=== PATIENT | female | born 1990 ===

== ENCOUNTER 2017-12-13 00:34 | Emergency (ER) | payer SELFPAY ==
[2017-12-13 01:32] LABS: HCG,QUALITATIVE URINE NEGATIVE (NEGATIVE)
--- NOTE | 2017-12-13 01:33 | C.PDOC ---
History Of Present Illness Patient with a Hx of vp revenue cycle shunt presents to the ER with a complaint of headache, dizziness, nausea, and vomiting, for the past 3 days. Patient states she feels like she has pressure behind her eyes. Denies recent trauma. Time Seen by Provider: 12/13/17 01:33 Chief Complaint (Nursing): Headache History Per: Patient History/Exam Limitations: no limitations Onset/Duration Of Symptoms: Days Current Symptoms Are (Timing): Still Present Severity: Moderate Pain Scale Rating Of: 4 Quality: "Pain" Preceeding Symptoms: None Associated Symptoms: Nausea, Vomiting. denies: Photophobia, Blurred Vision, Extremity Weakness Recent travel outside of the [place]: No Past Medical History Reviewed: Historical Data, Nursing Documentation, Vital Signs Vital Signs: Last Vital Signs Temp 98.3 F 12/13/17 04:00 Pulse 56 L 12/13/17 04:00 Resp 16 12/13/17 04:00 BP 110/69 12/13/17 04:00 Pulse Ox 99 12/13/17 04:48 Family History: States: No Known Family Hx - Social History Hx Alcohol Use: Yes Hx Substance Use: No - Immunization History Hx Tetanus Toxoid Vaccination: No Hx Influenza Vaccination: No Hx Pneumococcal Vaccination: No Review Of Systems Constitutional: Negative for: Fever, Chills Gastrointestinal: Positive for: Nausea, Vomiting. Negative for: Abdominal Pain Neurological: Positive for: Headache, Dizziness Physical Exam - Physical Exam Appears: Non-toxic Skin: Warm, Dry Head: Normacephalic Oral Mucosa: Moist Chest: Symmetrical, No Tenderness Cardiovascular: Rhythm Regular Respiratory: No Rales, No Rhonchi, No Wheezing Gastrointestinal/Abdominal: Soft, No Tenderness, Distention (Mildly), Other ( Tympanic to percussion) Neurological/Psych: Oriented x3 ED Course And Treatment - Laboratory Results Result Diagrams: 12/13/17 03:38 12/13/17 03:38 O2 Sat by Pulse Oximetry: 99 (Room air) Pulse Ox Interpretation: Normal - Radiology CXR: Interpreted by Me, Viewed By Me CXR Interpretation: Yes: Other (shunt drain in place). No: Infiltrates, Fracture, Pnemothorax Progress Note: CT head, blood work, and urinalysis ordered. IV fluids and zofran administered. 3:55 am pr developed some hives on right forearm after morphine. No wheezing, speaking in complete sentences. benadryl and solu-medrol given Reevaluation Time: 06:01 Reassessment Condition: Improved Disposition Counseled Patient/Family Regarding: Studies Performed, Diagnosis, Need For Followup, Rx Given - Disposition Referrals: [facility] [Outside] [facility] [Outside] Disposition: HOME/ ROUTINE Disposition Time: 01:33 Condition: FAIR Additional Instructions: Please follow up with your neurosurgeon Prescriptions: Ondansetron ODT [Zofran ODT] 1 odt PO BID PRN #10 odt PRN Reason: Nausea/Vomiting Instructions: Acute Headache (DC) Forms: [employer] (German) - Clinical Impression Clinical Impression: Headache - Scribe Statement The provider has reviewed the documentation as recorded by the [employer] All medical record entries made by the Scribe were at my direction and personally dictated by me. I have reviewed the chart and agree that the record accurately reflects my personal performance of the history, physical exam, medical decision making, and the department course for this patient. I have also personally directed, reviewed, and agree with the discharge instructions and disposition.
[2017-12-13] MEDS ORDERED: Lactated Ringer's 1,000 ML IV STA (01:44)
[2017-12-13 01:48] LABS: SQUAMOUS EPITHIAL 6 /hpf (0-5); URINE BILIRUBIN NEGATIVE (NEGATIVE); URINE BLOOD NEGATIVE (NEGATIVE); URINE CLARITY Hazy (Clear); URINE COLOR Yellow (YELLOW); URINE GLUCOSE (UA) NORMAL (Normal); URINE LEUKOCYTE ESTERASE NEG Leu/uL (Negative); URINE NITRATE NEGATIVE (NEGATIVE); URINE PROTEIN NEGATIVE (NEGATIVE)
[2017-12-13] MEDS ORDERED: Lactated Ringer's 1,000 ML ONE (02:36)
--- NOTE | 2017-12-13 02:42 | CT ---
EXAM: CT Head Without Intravenous Contrast CLINICAL HISTORY: 27 years old, female; Pain; Headache; Headache not specified; Prior surgery; Surgery date: 6+ months; Surgery type: Trading Manager shunt. 1.5yrs ago; Additional info: Headache, HX of avp shunt TECHNIQUE: Axial computed tomography images of the head/brain without intravenous contrast. All CT scans at this facility use one or more dose reduction techniques, viz.: automated exposure control; ma/kV adjustment per patient size (including targeted exams where dose is matched to indication; i.e. head); or iterative reconstruction technique. COMPARISON: No relevant prior studies available. FINDINGS: Brain: No intracranial hemorrhage. No mass. No definite edema. Ventricles: No hydrocephalus. Ventricular shunt via right frontal approach, tip projected over third ventricle. Bones/joints: No acute fracture. Soft tissues: Unremarkable. Sinuses: No acute sinusitis. Mastoid air cells: No mastoid effusion. Orbits: Unremarkable as visualized. IMPRESSION: 1. No definite acute intracranial abnormality. 2. Incidental/non-acute findings are described above.
[2017-12-13 03:41] LABS: BASO # 0.1 K/uL (0.0-0.2); EOS # 0.2 K/uL (0.0-0.7); EOS % 2.9 % (0.0-4.0); HEMOGLOBIN 10.2 g/dL (11.0-16.0); LYMPH # 2.8 K/uL (1.0-4.3); LYMPH % 48.5 % (20.0-40.0); MEAN CELL VOLUME 76.5 fL (81.0-99.0); MEAN CORPUSCULAR HEMOGLOBIN 24.4 pg (27.0-31.0); MEAN CORPUSCULAR HGB CONC 31.9 g/dL (33.0-37.0); MONO # 0.8 K/uL (0.0-0.8); MONO % 13.6 % (0.0-10.0); NRBC % 0.2 % (0.0-2.0); RBC 4.17 Mil/uL (3.80-5.20); RED CELL DISTRIBUTION WIDTH 16.3 % (11.5-14.5); WHITE BLOOD COUNT 5.9 K/uL (4.8-10.8)
[2017-12-13 03:53] LABS: ALB/GLOB RATIO 1.3 (1.0-2.1); ALT/SGPT 21 U/L (9-52); AST/SGOT 19 U/L (14-36); BLOOD UREA NITROGEN 18 mg/dL (7-17); CALCIUM 8.8 mg/dl (8.6-10.4); GFR AFRICAN-AMERICAN > 60; GFR NON-AFRICAN AMERICAN 59
[2017-12-13] MEDS ORDERED: DiphenhydrAMINE 50 mg/ml Inj IVP STA (03:59)
[2017-12-13] MEDS ORDERED: DiphenhydrAMINE 50 mg/ml Inj ONE (04:03)
[2017-12-13 04:33] VITALS: RESP 16
[2017-12-13 06:03] VITALS: BP 103/64; PULSE 57; TEMP 98.5; O2SAT 99
--- NOTE | 2017-12-13 10:10 | RAD ---
PROCEDURE: CHEST RADIOGRAPH, 1 VIEW HISTORY: back pain COMPARISON: None available. FINDINGS: LUNGS: Clear. PLEURA: No pneumothorax or pleural fluid seen. CARDIOVASCULAR: Normal. OSSEOUS STRUCTURES: No significant abnormalities. VISUALIZED UPPER ABDOMEN: Normal. OTHER FINDINGS: None. IMPRESSION: No active disease.
== END 2017-12-13 06:24 | disposition home or self-care (01) ==
LOC: C.ER 00:34
DX: R51 Headache (principal); L50.9 Urticaria, unspecified
CPT/HCPCS: 70450; 71045; 80053; 81001; 84703; 85025; 96361; 96374; 96375; 99285; J1200; J1885; J2270; J2405; J2930; J7120